=== PATIENT | female | born 1990 | race Hispanic/Latino ===

== ENCOUNTER 2024-06-11 13:51 | Emergency (ER) | payer SELFPAY ==
[2024-06-11] MEDS ORDERED: Acetaminophen 500 MG TAB ONE (14:38)
[2024-06-11] MEDS ORDERED: Ketorolac Tromethamine 30 MG (1 mL) VIAL ONE (14:38)
== END 2024-06-11 15:55 | disposition home or self-care (01) ==
LOC: ERS 13:51
DX: R51.9 Headache, unspecified (principal)
CPT/HCPCS: 87428; 96372; 99283; J1885